=== PATIENT | male | born 1965 ===

== ENCOUNTER 2017-07-19 12:18 | Emergency (ER) | payer OTHER ==
--- NOTE | 2017-07-19 12:35 | ED PSYCHIATRIC COMPLAINT ---
See Addendum History of Present Illness General Chief Complaint: Psychiatric Related Complaint Stated Complaint: +SI Source: patient Exam Limitations: poor historian Vital Signs & Intake/Output Vital Signs & Intake/Output Vital Signs Date Time Temp Pulse Resp B/P B/P Pulse O2 O2 Flow FiO2 Mean Ox Delivery Rate 07/19 1607 98.5 93 16 178/104 99 Room Air 07/19 1407 98.6 92 16 196/105 98 Room Air 07/19 1247 Room Air 07/19 1220 97.7 92 20 179/110 99 Room Air Triage Nurses Notes Reviewed? yes Onset: Abrupt Duration: hour(s): Timing: recent history HPI: 07/19/17 2:48 PM 52-year-old male presents to the emergency department on a PEC for expressing suicidal ideation. According to the patient [facility] and made some statements that he regretted. He currently denies suicidal ideation and homicidal ideation. He denies substance abuse or being on antidepressant medications currently. Past History Travel History Traveled to [place] past 21 day No Medical History Any Pertinent Medical History? see below for history Psychiatric: depression Surgical History Surgical History: non-contributory Family History Hx Contributory? No Review of Systems Review of Systems Constitutional: Denies: fever. EENTM: Denies: visual changes. Respiratory: Denies: short of breath. Cardiovascular: Denies: chest pain. GI: Reports: no symptoms. Genitourinary: Reports: no symptoms. Musculoskeletal: Reports: no symptoms. Skin: Reports: no symptoms. Neurological/Psychological: Reports: anxiety, depressed. Hematologic/Endocrine: Reports: no symptoms. Immunologic/Allergic: Reports: no symptoms. Physical Exam Physical Exam General Appearance: alert, awake, anxious, mild distress Head: atraumatic, normal appearance Eyes: Bilateral: normal appearance, PERRL, EOMI. Ears, Nose, Throat: normal pharynx, normal ENT inspection Neck: normal inspection, supple Respiratory: normal breath sounds, chest non-tender, no respiratory distress Cardiovascular: regular rate/rhythm Gastrointestinal: non-tender Extremities: normal range of motion Neurological/Psychiatric: awake, alert, anxious Appearance/Memory/Insight: appropriate appearance Behavoir/Eye Contact/Speech: cooperative Thoughts/Hallucinations: no apparent hallucination Skin: intact, normal color, warm/dry SAD PERSONS SAD PERSONS Response Value Male Sex? yes 1 Age <19 or >45 years? yes 1 Depression/Hopelessness? yes 2 Previous Attempts/Psych Care yes 1 Rational Thinking Loss? yes 2 Single//? yes 1 Social Support? has no support 1 Total 9 SAD PERSONS Done? yes Progress Differential Diagnosis: drug intoxication, drug overdose, drug withdrawal, DEPRESSION Plan of Care: Orders Procedure Date/time Status Heart Healthy Diet 07/19 D Active Continuous Observation Monitor 07/19 153 Active ED CRISIS PSYCH CONSULT 07/19 1537 Active URINE DRUGS OF ABUSE 07/19 1338 Complete COMPREHENSIVE METABOLIC PANEL 07/19 1338 Complete CBC WITHOUT DIFFERENTIAL 07/19 1338 Complete Laboratory Tests 07/19/17 1357: Anion Gap 12, Estimated GFR > 60, BUN/Creatinine Ratio 13.0, Glucose 87, Calcium 9.4, Total Bilirubin 0.7, AST 24, ALT 25, Alkaline Phosphatase 69, Total Protein 7.8, Albumin 4.6, Globulin 3.2, Albumin/Globulin Ratio 1.4, CBC w Diff NO MAN DIFF REQ, RBC 4.62 L, MCV 89.5, MCH 30.2, MCHC 33.7, RDW 14.4, MPV 7.9, Gran % 61.3, Lymphocytes % 28.8, Monocytes % 8.6, Eosinophils % 0.4, Basophils % 0.9, Absolute Granulocytes 3.2, Absolute Lymphocytes 1.5, Absolute Monocytes 0.4, Absolute Eosinophils 0, Absolute Basophils 0 07/19/17 1348: Urine Opiates Screen < 100, Methadone Screen < 40, Barbiturate Screen < 60, Ur Phencyclidine Scrn < 6.00, Amphetamines Screen < 100, U Benzodiazepines Scrn < 85, Urine Cocaine Screen < 50, Urine Cannabis Screen > 80.00 H Initial ED EKG: none Departure Departure Disposition: STILL A PATIENT Condition: Stable Clinical Impression Primary Impression: Depression Secondary Impressions: Agitation Referrals: Melissa MELÉNDEZ,Chidi Mehta (PCP/Family) Departure Forms: Customer Survey General Discharge Information Critical Care Note Critical Care Note Critical Care Time: 30-74 min
[2017-07-19 14:09] LABS: ABSOLUTE BASOPHIL COUNT 0 /CUMM (0.0-0.2); ABSOLUTE EOSINOPHIL COUNT 0 /CUMM (0.0-0.7); ABSOLUTE GRANULOCYTE CT 3.2 /CUMM (1.4-6.5); ABSOLUTE LYMPH COUNT 1.5 /CUMM (1.2-3.4); ABSOLUTE MONOCYTE COUNT 0.4 /CUMM (0.10-0.60); BASOPHIL % 0.9 % (0.0-2.0); EOSINOPHIL % 0.4 % (0-5); GRANULOCYTE % 61.3 % (42.2-75.2); HEMATOCRIT 41.3 % (42-52); MEAN CORPUSCULAR HGB 30.2 PG (27.0-31.0); MEAN CORPUSCULAR HGB CONC 33.7 G/DL (33.0-37.0); MEAN CORPUSCULAR VOLUME 89.5 FL (80.0-94.0); MEAN PLATELET VOLUME 7.9 FL (7.4-10.4); PLATELET COUNT 311 /CUMM (130-400); RBC DISTRIBUTION WIDTH 14.4 % (11.5-14.5); RED BLOOD CELL CT 4.62 /CUMM (4.70-6.10); WHITE BLOOD CELL COUNT 5.2 /CUMM (4.8-10.8)
--- NOTE | 2017-07-19 19:10 | ED PSY CRISIS COLLATERAL NOTE ---
Collateral Note Collateral Note Family/Inform/Don Contacts: This clinician called and spoke with sister Charo Becker [phone] who reports the patient woke up frustrated this morning regarding not getting services completed from the [facility] in [place] The sister reports the patient has no history of suicide ideation or suicide attempts, reports no history of homicidal ideation of attempts. The sister feels comfortable with the patient retuning home. The sister reports the patient has a history of Cannabis Abuse.
--- NOTE | 2017-07-19 19:43 | ED PSYCH CRISIS CONSULTATION ---
Crisis Consult Basic Assessment Date of Consult: 07/19/17 Responsible Person/Accompanied By: self Insurance Authorization: Insurance #1: Insurance name: [employer] Phone number: Policy number: [id number] Group number: Authorization number: ED Provider: Patient's ED Provider: Maicol Holguin DO Primary Care Physician: Patient's PCP: Chidi Torres MD PCP's Current Psychiatrist: Stephen Gottlieb MD Chief Complaint: Psychiatric Related Complaint Patient's Quote: " I got what I wanted" " A appointment with the [place]" Present Illness: Patient is a 52-year-old male presents to the emergency department on a PEC for expressing suicidal ideation stating he will kill himself. The patient reports getting upset on the phone with the [place] and made some statements of suicide statements. The patient reports he made the statements to obtain a appointment from the [place]. He reports " I got what a wanted" " A appointment with the [place]. The patient reports being a [place] and working with a case investigator and therapist at the [facility] in [place], [place]. He reports being frustrated with the [place] system regarding obtaining benefits of social security. He reports calling today to obtain a appointment and making suicidal statement at the [facility]. He reports making the statement to obtain a appointment and reports getting a appointment for 07/20/2017 at 9:00 am with Lorelei Palafox. This clinician evaluated the patient who denies suicidal and homicidal ideation. The patient reports some depression and states being treated by Lorelei Palafox. The patient denied auditory and visual hallucinations. The patient reports smoking Cannabis x2 per week. The patient denied any substance abuse treatment. The patient denied any hospitalization for psychiatric treatment. The patient denied having any weapons at home. The patient denied any history of suicide ideation or attempts. He reports having a appointment with his therapist tomorrow at 9:00 am with Lorelei Palafox at the [place] in [place], [place].[phone]. Patient's Address: [address] [place] [address] Other Phone Number: Who Do You Live With? Sister Family/Informants Interviewed: sister Charo Becker [phone] Laboratory Results: Laboratory Tests 07/19/17 1357: Anion Gap 12, Estimated GFR > 60, BUN/Creatinine Ratio 13.0, Glucose 87, Calcium 9.4, Total Bilirubin 0.7, AST 24, ALT 25, Alkaline Phosphatase 69, Total Protein 7.8, Albumin 4.6, Globulin 3.2, Albumin/Globulin Ratio 1.4, CBC w Diff NO MAN DIFF REQ, RBC 4.62 L, MCV 89.5, MCH 30.2, MCHC 33.7, RDW 14.4, MPV 7.9, Gran % 61.3, Lymphocytes % 28.8, Monocytes % 8.6, Eosinophils % 0.4, Basophils % 0.9, Absolute Granulocytes 3.2, Absolute Lymphocytes 1.5, Absolute Monocytes 0.4, Absolute Eosinophils 0, Absolute Basophils 0 07/19/17 1348: Urine Opiates Screen < 100, Methadone Screen < 40, Barbiturate Screen < 60, Ur Phencyclidine Scrn < 6.00, Amphetamines Screen < 100, U Benzodiazepines Scrn < 85, Urine Cocaine Screen < 50, Urine Cannabis Screen > 80.00 H Past History Past Medical History Psychiatric: depression, substance abuse Past Surgical History Surgical History: non-contributory Psychosocial History Strengths/Capabilities: motivated to obtain help Psychiatric Treatment History Psych Treatment Psychiatric Treatment Yes Inpatient Treatment No Outpatient Treatment Yes Location of Treatment [facility] Reason for Treatment depression Dates of Treatment currently being treated Response to Treatment poor Diagnosis by History: F32.9 Major Depression Substance Use/Abuse History Drug Use/Abuse Substances Used/Abused Yes Substance Used/Abused Marijuana First Use 20 year old Last Used yesterday How much used/taken 1 joint How often x 2 weekly For how long 5 years Route of use smoking Substance Abuse Treatment Substance Abuse Treatment Past Substance Abuse [place] No Inpatient Treatment No Outpatient Treatment No Current Mental Status Mental Status Orientation: Person, Place, Situation Affect: Depressed Speech: WNL Neuro-vegetative: WNL Appearance Appearance- Dress/Hygiene: dressed in hospital clothing Behaviors Thought Process: WNL Thought Content: WNL Memory: WNL Insight: Fair SI/HI Risk Assessment Past Suicidal Ideation/Attempts No Current Suicidal Ideation/Att Yes Past Homicidal Ideation/Att: No Current Homicidal Ideation/Attempts No Degree of Intent: Thoughts/No Intent Danger To: Self Gravely Disabled: Poor Judgment Risk Factors: substance abuse, male Lethality Ratin PTSD Checklist PTSD Score: PTSD Score: Response Value Disturbing memories,thoughts,images of stressful experience? Not at all 1 Disturbing dreams of stressful experience from past? Not at all 1 Suddenly acting/feeling as if reliving stressful experience? Not at all 1 Total 3 PTSD Done? patient declined ED Management Sitter: Yes Restraints: No DSM5/PS Stressors/Medical Prob Diagnosis' (DSM 5, Stressors, Medical): Depression Unspecified F32.9 Current GAF: 29 Comments: Patient presents to the emergency on a PEER from [place] [employer] after calling the [facility] in [place], [place]. The patient states he wanted to obtain a appointment and got frustrated and stated he was suicidal to obtain a appointment. He reports " I got what I wanted". Upon interveiw the patient denied suicidal or homicidal ideation. Consulted with Dr. Laney Gottlieb for the patient to be discharge and follow up with the [facility] on 07/20/2017. Departure Disposition Psych Medical Clearance Date: 07/19/17 Medically Cleared at: 1830 Time Started: 183 Time Ended: 1929 Psychiatrist Consulted: Stephen Gottlieb MD Date Disposition Established: 07/19/17 Time Disposition Established: 1929 Plan for Disposition - Modality: Outpatient Facility: [place] Follow-up Appt Date: 07/20/17 Follow-Up Appt Time: 0900 Contact: Lorelei Palafox Rationale for Disposition: Patient presents to the emergency on a PEER from [place] [employer] after calling the [facility] in [place], [place]. The patient states he wanted to obtain a appointment and got frustrated and stated he was suicidal to obtain a appointment. He reports " I got what I wanted". Upon interveiw the patient denied suicidal or homicidal ideation. Consulted with Dr. Laney Gottlieb for the patient to be discharge and follow up with the [facility] on 07/20/2017. Referrals Melissa MELÉNDEZ,Chidi Mehta (PCP/Family)
[2017-07-19 20:39] VITALS: BP 188/102
== END 2017-07-19 21:00 ==
LOC: ERH 12:18
PROVIDERS: Emergency Medicine
DX: F32.9 Major depressive disorder, single episode, unspecified (principal); R45.851 Suicidal ideations; R45.1 Restlessness and agitation
CPT/HCPCS: 80307; G0463